=== PATIENT | male | born 1945 | race Caucasian/White ===

== ENCOUNTER 2023-01-03 09:15 | Emergency (ER) | payer OTHER ==
--- OUTSIDE RECORDS SUMMARY | 2023-01-03 09:18 | XMS REPORT | Continuity of Care Document ---
:1945 Author Organization [facility] t Address [address] [place] [address] [place] [id number] Care Team Providers Name Role Phone Asked, No Pcp Primary Care Physician Unavailable Robert Perry Attending Clinician Unavailable Doctor Unassigned, Christmas Attending Clinician Unavailable Cas Culp MD Attending Clinician CAS CULP Attending Clinician Unavailable CAS CULP Admitting Clinician Unavailable Payers Payer Name Policy Type Policy Number Effective Date Expiration Date S ource Problems Condition Condition Condition Status Onset Resolution Last Treating Co mments Source Name Details Category Date Date Treatment Clinician Date No known No known Disease Unive rs active active ity of problems problems [facility] Allergies, Adverse Reactions, Alerts Allergy Allergy Status Severity Reaction(s) Onset Inactive Treating Comm ents Source Name Type Date Date Clinician NO KNOWN Drug Active Univers ALLERGIE Class ity of S [facility] Social History Social Habit Start Date Stop Date Quantity Comments Source Gender identity Universit y of [facility] Sexual orientation [facility] Exposure to 2021-12-08 2021-12-18 Not sure [facility] SARS-CoV-2 (event) 00:00:00 09:28:00 [facility] History of Social 2021-12-05 2021-12-05 Univers ity of function 00:00:00 00:00:00 [facility] Tobacco use and 2021-12-05 2021-12-05 Smokeless Universit y of exposure 00:00:00 00:00:00 tobacco non-user [facility] Alcohol intake 2021-12-05 2021-12-05 Lifetime University of 00:00:00 00:00:00 non-drinker [facility] (finding) [place] Sex [birth year] Sabianist 00:00:00 00:00:00 Hospital Smoking Status Start Date Stop Date Source [facility] Medications Ordered Filled Start Stop Current Ordering Indication Dosage Frequency Signature Comments Components Source Medication Medication Date Date Medication? Clinician (SIG) Name Name cephALEXin 2021-02 Yes Univers 500 mg 0-25 ity of capsule 00:00: [place] [facility] cephALEXin 2021-02 Yes Univers 500 mg 0-25 ity of capsule 00:00: [place] [facility] cephALEXin 2021-02 Yes Univers 500 mg 0-25 ity of capsule 00:00: [place] [address] [facility] Branch cephALEXin 2021-02 Yes Univers 500 mg 0-25 ity of capsule 00:00: [place] [address] [facility] Branch dorzolamide 2021-02 Yes APPLY ONE U nivers -timoloL 0-13 DROP IN ity of 22.3-6.8 00:00: EACH EYE [place] mg/mL 00 TWICE A Medical ophthalmic DAY Branch drops dorzolamide 2021-02 Yes APPLY ONE U nivers -timoloL 0-13 DROP IN ity of 22.3-6.8 00:00: EACH EYE [place] mg/mL 00 TWICE A Medical ophthalmic DAY Branch drops dorzolamide 2021-02 Yes APPLY ONE U nivers -timoloL 0-13 DROP IN ity of 22.3-6.8 00:00: EACH EYE [place] mg/mL 00 TWICE A Medical ophthalmic DAY Branch drops dorzolamide 2021-02 Yes APPLY ONE U nivers -timoloL 0-13 DROP IN ity of 22.3-6.8 00:00: EACH EYE [place] mg/mL 00 TWICE A Medical ophthalmic DAY Branch drops LUMIGAN 2021-02 Yes 1[drp] Place 1 Unive rs 0.01 % 0-11 Drop in ity of ophthalmic 00:00: [place] drops 00 at Medical bedtime. Branch LUMIGAN 2021-02 Yes 1[drp] Place 1 Unive rs 0.01 % 0-11 Drop in ity of ophthalmic 00:00: [place] drops 00 at Medical bedtime. [facility] 2021-02 Yes 1[drp] Place 1 Unive rs 0.01 % 0-11 Drop in ity of ophthalmic 00:00: [place] eyes [place] drops 00 at Medical bedtime. [facility] 2021-02 Yes 1[drp] Place 1 Unive rs 0.01 % 0-11 Drop in ity of ophthalmic 00:00: [place] drops 00 at Medical bedtime. [place] diclofenac 2020- No [id number] TAKE 1 Univers 75 mg EC 2-27 05-28 9102 TABLET BY ity o f tablet 00:00: 04:59 MOUTH [place] 00 :00 TWICE A Medical DAY WITH [place] MEALS DICLOFENAC 2018-02 Yes [id number] TAKE 1 Univers 75 mg EC 2-10 9102 TABLET BY ity of tablet 00:00: MOUTH [place] 00 TWICE A Medical DAY WITH [facility] DICLOFENAC 2018-02 Yes [id number] TAKE 1 Univers 75 mg EC 2-10 9102 TABLET BY ity of tablet 00:00: MOUTH [place] 00 TWICE A Medical DAY WITH [facility] DICLOFENAC 2018-02 Yes [id number] TAKE 1 Univers 75 mg EC 2-10 9102 TABLET BY ity of tablet 00:00: MOUTH [place] 00 TWICE A Medical DAY WITH [facility] DICLOFENAC 2018-02 2020- No [id number] TAKE 1 Univers 75 mg EC 2-10 -27 9102 TABLET BY ity o f tablet 00:00: 00:00 MOUTH [place] 00 :00 TWICE A Medical DAY WITH [facility] TIMOLOL Yes Place in [facility] OPHTHALMIC 8-26 each eye. ity of 20:16: [address] TIMOLOL 2018-[address] [facility] [place] [facility] OPHTHALMIC 8-26 each eye. ity of 20:16: [address] TIMOLOL 2018-[address] in [facility] [place] [facility] OPHTHALMIC 8-26 each eye. ity of 20:16: [address] TIMOLOL 2019-[address] in [facility] [place] [facility] OPHTHALMIC 8-26 each eye. ity of 20:16: [address] TIMOLOL 2018-[address] in [facility] [place] [facility] OPHTHALMIC 8-26 each eye. ity of 20:16: [address] TIMOLOL 2019-[address] in [facility] [place] [facility] OPHTHALMIC 8-26 each eye. ity of 20:16: [address] TIMOLOL 2019-[address] [facility] [place] [facility] OPHTHALMIC 8-26 each eye. ity of 20:16: [address] TIMOLOL 2019-[address] [facility] [place] [facility] OPHTHALMIC 8-26 each eye. ity of 15:16: [address] TIMOLOL 2019-[address] [facility] [place] [facility] OPHTHALMIC 8-26 each eye. ity of 15:16: [address] TIMOLOL 2019-[address] [facility] [place] [facility] OPHTHALMIC 8-26 each eye. ity of 15:16: [address] TIMOLOL 2019-[address] [facility] [place] [facility] OPHTHALMIC 8-26 each eye. ity of 15:16: [address] TIMOLOL 2019-[address] [facility] [place] [facility] OPHTHALMIC 8-26 each eye. ity of 15:16: [address] TIMOLOL 2019-[address] [facility] [place] [facility] OPHTHALMIC 8-26 each eye. ity of 15:16: [address] TIMOLOL 2019-[address] [facility] [place] [facility] OPHTHALMIC 8-26 each eye. ity of 15:16: [address] diclofenac 2019-0 Yes [id number] 75mg Take 1 Univers 75 mg EC 8-26 9102 tablet by ity of tablet 00:00: mouth 2 [place] [address] ([facility]) Medical times [place] daily with meals. diclofenac 2019-0 Yes [id number] 75mg Take 1 Univers 75 mg EC 8-26 9102 tablet by ity of tablet 00:00: mouth 2 [place] [address] (two) Medical times [place] daily with meals. diclofenac 2019-0 Yes [id number] 75mg Take 1 Univers 75 mg EC 8-26 9102 tablet by ity of tablet 00:00: mouth 2 [place] (two) Medical times [place] daily with meals. Vital Signs Vital Name Observation Time Observation Value Comments Source Body height 2021-12-18 14:33:00 190.5 cm [facility] Body weight 2021-12-18 14:33:00 92.987 kg [facility] BMI 2021-12-18 14:33:00 25.62 kg/m2 [facility] Systolic blood 2021-12-05 14:08:00 139 [facility] Diastolic blood 2021-12-05 14:08:00 78 mm[Hg] Unive rsity of pressure [facility] Heart rate 2021-12-05 14:08:00 80 /min Universi ty of [facility] Body height 2021-12-05 14:08:00 190.5 cm Universi ty of [facility] Body weight 2021-12-05 14:08:00 92.987 kg Universi ty [facility] [place] BMI 2021-12-05 14:08:00 25.62 kg/m2 Universi ty of [facility] Body height 2019-03-08 20:32:00 190.5 cm Universi ty of [facility] Body weight 2019-03-08 20:32:00 95.255 kg Universi ty of [facility] BMI 2019-03-08 20:32:00 26.25 kg/m2 Universi ty [facility] [place] Systolic blood 2018-10-17 20:14:00 112 mm[Hg] Univer sity of [facility] Diastolic blood 2018-10-17 20:14:00 67 mm[Hg] Unive rsity of [facility] Heart rate 2018-10-17 20:14:00 66 /min Universi ty [facility] [place] Respiratory rate 2018-10-17 20:14:00 18 /min Univ ersity of [facility] Body height 2018-10-17 20:14:00 190.5 cm Universi ty of [facility] Body weight 2018-10-17 20:14:00 95.255 kg Universi ty [facility] [place] BMI 2018-10-17 20:14:00 26.25 kg/m2 Universi ty [facility] [place] Procedures Procedure Date / Time Performed Performing Clinician [facility] luis ASSIGNMENT OF BENEFITS 2022-09-09 13:39:24 Doctor Unassigned, No [facility] Branch MR KNEE RIGHT WO 2021-12-10 14:36:00 Cas Culp [facility] Plan of Care Planned Activity Planned Date Details Comments Source Future Scheduled 2022-12-19 COVID-19 VACCINE (#1) [facility] Test 22:34:16 [code = COVID-19 VACCINE (#1)] Future Scheduled 2022-12-19 Hepatitis C screening [facility] Test 22:34:16 (procedure) [code = 475164814] Future Scheduled 2022-12-19 SHINGLES VACCINES (1 [facility] Test 22:34:16 of 2) [code = SHINGLES VACCINES (1 of 2)] Future Scheduled 2022-12-19 65+ PNEUMOCOCCAL [facility] Test 22:34:16 VACCINE (1 - PCV) [code = 65+ PNEUMOCOCCAL VACCINE (1 - PCV)] Future Scheduled 2022-12-19 INFLUENZA VACCINE (#1) [facility] Test 22:34:16 [code = INFLUENZA VACCINE (#1)] Future Scheduled 2022-05-25 INFLUENZA VACCINE [facility] Test 16:40:27 [code = INFLUENZA VACCINE] Future Scheduled 2022-05-25 COVID-19 VACCINE (#1) [facility] Test 16:40:27 [code = COVID-19 VACCINE (#1)] Future Scheduled 2022-05-25 Hepatitis C screening [facility] Test 16:40:27 (procedure) [code = [id number]] Future Scheduled 2022-05-25 COLONOSCOPY SCREENING [facility] Test 16:40:27 [code = COLONOSCOPY SCREENING] Future Scheduled 2022-05-25 SHINGLES VACCINES (1 [facility] Test 16:40:27 of 2) [code = SHINGLES VACCINES (1 of 2)] Future Scheduled 2022-05-25 65+ PNEUMOCOCCAL [facility] Test 16:40:27 VACCINE (1 - PCV) [code = 65+ PNEUMOCOCCAL VACCINE (1 - PCV)] Encounters Start End Encounter Admission Attending Care Care Encounter Source Date/Time Date/Time Type Type Clinicians Facility Department ID 2022-07-01 Outpatient [place] [facility] [id number] Common 15:05:02 Robert [id number] [facility] 2022-09-09 2022-09-09 Orders Doctor FAM [id number] Univers 00:00:00 00:00:00 Only Unassigned, [place] [id number] ity of Christmas [facility] [id number] Top[place] as [phone] [facility] traci 009 Branch 2021-12-26 2021-12-26 Telephone DORA Culp [id number] Univers 00:00:00 00:00:00 Cas GOMEZ [id number] it y of [place] [id number] Topher as CHATO?BLEA [phone] [facility] [address] [place] [address] OFFICE [facility] 2021-12-18 2021-12-18 [facility] [id number] Univers 10:00:00 10:00:00 Visit Cas GOMEZ [id number] it y of [place] [id number] Topher as CHATO?BLEA [phone] [facility] [place] [address] [place] [address] OFFICE [facility] 2021-12-18 2021-12-18 [facility] [id number] Univers 10:00:00 09:58:05 CAS weems [facility] [place] 2021-12-10 2021-12-10 [facility] [id number] Univers 08:31:25 23:59:00 CAS weems [facility] [place] 2021-12-10 2021-12-10 [facility] [id number] Univers 08:31:25 23:59:00 Encounter Cas MELO [id number] ity of [place] [id number] [place] [facility] [phone] [address] 2021-12-05 2021-12-05 [facility] [id number] Univers 09:15:00 11:04:31 CAS weems [facility] [place] 2021-12-05 2021-12-05 [id number] Univers 09:15:00 11:04:31 Visit Cas GOMEZ [id number] it y of [place] [id number] Topher as CHATO?BLEA [phone] [facility] [place] [address] [place] [address] OFFICE [facility] 2020-08-21 2020-08-21 Outpatient [facility] [id number] [employer] 00:00:00 00:00:00 ROBERT [address] 2020-08-21 2020-08-21 Outpatient [facility] [id number] [employer] 00:00:00 00:00:00 ROBERT [address] 2019-04-20 2019-04-20 [facility] [id number] 00:00:00 00:00:00 Cas Gomez [id number] Surgical [id number] Specialti [phone] es [address] [place] 2019-04-20 2019-04-20 [facility] [id number] [facility] 00:00:00 00:00:00 Cas Gomez [id number] it y of Surgical [id number] Topher as Specialti [phone] Va dical es 198 [facility] 2019-03-08 2019-03-08 Office [facility] [id number] [facility] 14:28:15 15:08:55 Visit Cas Gomez [id number] it y of Surgical [id number] Topher as Specialti [phone] Va dical es 198 [facility] 2018-10-17 2018-10-17 [facility] [id number] [facility] 15:30:59 23:59:00 Encounter Cas Gomez [id number] ity of Surgical [id number] Topher as Specialti [phone] Va dical es 809 [facility] 2018-10-17 2018-10-17 Office [facility] [id number] Univers 15:09:41 15:43:06 Visit Cas Lr [employer] [id number] it y of Surgical [id number] Topher as Specialti [phone] Va dical es 198 [facility] Results This patient has no known results.
[2023-01-03 10:19] LABS: Absolute Lymphocytes (CBC) 0.5 K/uL (0.7-4.9); Hematocrit 38.5 % (39.6-49.0); Lymphocytes % 5.5 % (15.3-44.8); MPV 6.6 fL (7.6-11.3); Platelets 131 thou/uL (152-406); RBC Red Blood Cell Count 4.32 M/uL (4.33-5.43)
[2023-01-03 10:27] LABS: Specific Gravity 1.026 (1.005-1.030); Transitional Epithelial <5 /HPF (None Seen); Urine Bacteria 20-50 /HPF (<20); Urine Bilirubin NEGATIVE (Negative); Urine Blood 2+ (Negative); Urine Clarity Extremely Turbid (Clear); Urine Color Yellow (Yellow); Urine Glucose NEGATIVE (Negative); Urine Mucus Slight /HPF (None Seen); Urine Protein 1+ (Negative); Urine RBC >50 /HPF (None Seen); Urine Urobilinogen 1+ (Normal)
[2023-01-03 10:34] LABS: Albumin 3.1 g/dL (3.4-5.0); Bilirubin Total 1.2 mg/dL (0.2-1.0); Potassium 3.9 mEq/L (3.5-5.1); Protein, Total 6.4 g/dL (6.4-8.2)
--- NOTE | 2023-01-03 11:00 | RAD REPORT ---
EXAM DESCRIPTION: US - Scrotum Testicles - 01/03/2023 10:42 am CLINICAL HISTORY: Testicular pain COMPARISON: None FINDINGS: Right testicle measures 4 x 3 x 3 centimeters. Echotexture is homogeneous. Increased blood flow right testicle and right epididymis Left testicle measures 4 x 3 x 2 centimeters. Echotexture is homogeneous. Normal blood flow Left epididymis is normal in size and echotexture. Small to moderate right hydrocele IMPRESSION: Right orchitis/epididymitis
--- NOTE | 2023-01-03 11:11 | ER ---
Nurse's Notes [facility] Name: Kishor Vargas Age: 77 yrs Sex: Male : 1945 Arrival Date: 01/03/2023 Time: 09:15 Bed 19 Private MD: Diagnosis: Epididymo-orchitis Presentation: 01/03 09:23 Chief complaint: Patient states: Swelling and pain to scrotal area since yesterday. ll1 Temperature 101.[address] Quan since May with Harrington since. Had urodynamic procedure Wednesday, [place] was replaced at that time. Coronavirus screen: Client denies travel out of the [place] in the last 14 days. At this time, the client does not indicate any symptoms associated with coronavirus-19. Ebola Screen: Patient denies travel to an Ebola-affected area in the 21 days before illness onset. Initial Sepsis Screen: Does the patient meet any 2 criteria? No. Patient's initial sepsis screen is negative. Does the patient have a suspected source of infection? Yes: Dysuria/Frequency/Urgency/UTI Catheter related infection ([place]/dialysis/PICC/central line). Risk Assessment: Do you want to hurt yourself or someone else? Patient reports no desire to harm self or others. Onset of symptoms was January 02, 2023. : Method Of Arrival: Ambulatory 1 :23 Acuity: ARMOND 3 ll1 Triage Assessment: : General: Appears uncomfortable, Behavior is calm, cooperative, appropriate for age. ll1 General: Reports fever for. : Reports swelling and pain to scrotal area. Historical: - Allergies: : No Known Allergies; ll1 - PMHx: : Glaucoma; ll1 - PSHx: : Glaucoma; Umbilical hernia; ll1 - Immunization history:: Adult Immunizations up to date. - Social history:: Smoking status: Patient denies any tobacco usage or history of. Screenin: [facility] ED Fall Risk Assessment (Adult) History of falling in the last 3 months, tm6 including since admission No falls in past 3 months (0 pts). Abuse screen: Denies threats or abuse. Denies injuries from another. Nutritional screening: No deficits noted. Tuberculosis screening: No symptoms or risk factors identified. Assessment: 09:22 General: Appears in no apparent distress. comfortable, Behavior is calm, cooperative. tm6 Pain: Complains of pain in pelvis. Neuro: Level of Consciousness is awake, alert, obeys commands, Oriented to person, place, time, situation. Cardiovascular: Capillary refill < 3 seconds Patient's skin is warm and dry. Respiratory: Airway is patent Respiratory effort is even, unlabored, Respiratory pattern is regular, symmetrical. GI: Abdomen is round non-distended. : No signs and/or symptoms were reported regarding the genitourinary system. EENT: No signs and/or symptoms were reported regarding the EENT system. Derm: No signs and/or symptoms reported regarding the dermatologic system. Musculoskeletal: No signs and/or symptoms reported regarding the musculoskeletal system. 10:43 Reassessment: Patient appears in no apparent distress at this time. tm6 11:31 Reassessment: Patient appears in no apparent distress at this time. Patient and/or tm6 family updated on plan of care and expected duration. Pain level reassessed. Vital Signs: 09:22 BP 160 / 91; Pulse 87; Resp 17; Temp 98.9(O); Pulse Ox 97% on R/A; tm6 09:23 Weight 92.99 kg; Height 6 ft. 3 in. ; Pain 8/10; ll1 10:43 Pulse 69; Pulse Ox 94% on R/A; tm6 11:31 BP 163 / 85; Pulse 74; Resp 17; Pulse Ox 98% ; tm6 09:23 Body Mass Index 25.62 (92.99 kg, 190.5 cm) ll1 09:23 Pain Scale: Adult ll1 ED Course: 09:17 Patient arrived in ED. mg5 09:20 Jass Caputo MD is Attending Physician. ec2 09:22 Yolis Keane RN is Primary Nurse. tm6 09:22 Patient has correct armband on for positive identification. Placed in gown. Bed in low tm6 position. Call light in reach. Side rails up X2. Provided Education on: harrington care. Client placed on continuous cardiac and pulse oximetry monitoring. NIBP monitoring applied. Door closed. Noise minimized. 09:22 scrotal exam. tm6 09:23 Arm band placed on Patient placed in an exam room, on a stretcher. ll1 09:26 Triage completed. ll1 10:44 Scrotum Testicles US In Process Unspecified. EDMS 11:32 IV discontinued, intact, bleeding controlled, No redness/swelling at site. tm6 Administered Medications: 11:31 Drug: LevOfloxacin PO 500 mg PO once Route: PO; tm6 Medication: 09:22 VIS not applicable for this client. tm6 Outcome: 11:10 Discharge ordered by . ec2 11:31 Discharged to home ambulatory, with family, tm6 11:31 Condition: stable 11:31 Discharge instructions given to patient, family, Instructed on discharge instructions, follow up and referral plans. medication usage, harrington care Demonstrated understanding of instructions, follow-up care, medications, Prescriptions given X 1, 11:32 Patient left the ED. tm6 Addendum: 01/08/2023 07:15 Addendum: Culture Results: Positive urine culture. No further action required. Bacteria e b sensitive to prescribed antibiotic. Signatures: Dispatcher [employer] EDCO Gris Monreal Lynsay, RN RN ll1 Whitney Lerma mg5 Jass Caputo MD MD ec2 Yolis Keane RN RN tm6
--- NOTE | 2023-01-03 11:11 | EDPHYS ---
Physician Documentation [facility] Name: Kishor Vargas Age: 77 yrs Sex: Male : 1945 Arrival Date: 01/03/2023 Time: 09:15 Bed 19 Private MD: ED Physician Jass Caputo HPI: 01/03 09:32 This 77 yrs old Male presents to ER via Ambulatory with complaints of Lutz ec2 Issue, Swelling in Scrotum. 09:32 Patient arrives today for evaluation of right testicular pain. He states that he has ec2 been having pain since just yesterday and the pain has been worsening. Patient reports no nausea or vomiting, no diarrhea symptoms. States that he has issues with urinary retention and has a chronic indwelling Lutz catheter that has been in place since May and recently replaced several days ago. Patient reports no change in urinary status.. Historical: - Allergies: 09:23 No Known Allergies; ll1 - PMHx: 09:23 Glaucoma; ll1 - PSHx: 09:23 Glaucoma; Umbilical hernia; ll1 - Immunization history:: Adult Immunizations up to date. - Social history:: Smoking status: Patient denies any tobacco usage or history of. ROS: 09:32 Constitutional: as per hpi ec2 Exam: 09:32 Constitutional: GEN: NAD Head: atraumatic Eyes: EOMI Ears: External ears are ec2 normal. CV: regular rate LUNGS: no respiratory distress ABD: non-distended : Intact cremasterics reflexes bilaterally, right testicle with TTP, slightly enlarged epididymis, normal left testicle. SKIN: no evidence of rashes MSK: no evidence of trauma NEURO: moves all extremities equally Vital Signs: 09:22 BP 160 / 91; Pulse 87; Resp 17; Temp 98.9(O); Pulse Ox 97% on R/A; tm6 09:23 Weight 92.99 kg; Height 6 ft. 3 in. ; Pain 8/10; ll1 10:43 Pulse 69; Pulse Ox 94% on R/A; tm6 11:31 BP 163 / 85; Pulse 74; Resp 17; Pulse Ox 98% ; tm6 09:23 Body Mass Index 25.62 (92.99 kg, 190.5 cm) ll1 09:23 Pain Scale: Adult ll1 MDM: 09:20 Patient medically screened. ec2 09:32 ED course: Patient arrives today due to concern for testicular pain. Examination ec2 remarkable for findings as noted above. Will obtain lower, urine studies, scrotal ultrasound for further assessment of the patient complaint. Currently considering process such as epididymitis, orchitis, lower suspicion for torsion. 09:52 ED course: Additionally regards to the patient's urine, possibly urine test as well as ec2 urine culture, patient with no urinary complaints specifically, regardless of result will defer to culture given the patient's lack of urinary complaints.. 10:47 ED course: CBC is reassuring, metabolic profile with appropriate electrolytes and renal ec2 function, urine is markedly infectious appearing, to be expected with the patient's Lutz catheter status. . 11:09 Data reviewed: vital signs. ED course: Ultrasound shows right-sided orchitis and ec2 epididymitis. Will start on antibiotics and follow-up with primary care doctor and urologist. 11 09:31 Order name: CBC with Diff; Complete Time: 10:47 ec2 01/03 09:31 Order name: CMP; Complete Time: 10:47 ec2 01/03 09:31 Order name: UAM; Complete Time: 10:47 ec2 01/03 09:52 Order name: Urine Culture ec2 01/03 09:31 Order name: Scrotum Testicles US; Complete Time: 11:09 ec2 Administered Medications: 11:31 Drug: LevOfloxacin PO 500 mg PO once Route: PO; tm6 Disposition Summary: 01/03/23 11:10 Discharge Ordered Notes: Location: Home ec2 Condition: Stable ec2 Diagnosis - Epididymo-orchitis ec2 Discharge Instructions: - Discharge Summary Sheet eb - Epididymitis ec2 - Orchitis ec2 Forms: - SBAR form eb - Medication Reconciliation Form ec2 - Thank You Letter ec2 - Antibiotic Education ec2 - Prescription Opioid Use ec2 - Patient Portal Instructions ec2 - Leadership Thank You Letter ec2 Prescriptions: - levofloxacin 500 mg Oral tablet - take 1 tablet ORAL route once daily for 7 days; 10 tablet; Refills: 0, Product ec2 Selection Permitted Signatures: Dispatcher [employer] Marlo Johansen RN RN ll1 Jass Caputo MD MD ec2 Yolis Keane RN RN tm6
[2023-01-03 11:37] VITALS: TEMP 98.9
[2023-01-03] MEDS ORDERED: levoFLOXacin 250 MG TAB ONE (11:37)
[2023-01-03 11:40] VITALS: BP 163/85; O2SAT 98
== END 2023-01-03 11:32 | disposition home or self-care (01) ==
LOC: ER 09:15
DX: N45.3 Epididymo-orchitis (principal)
CPT/HCPCS: 36415; 76870; 80053; 81001; 85025; 87077; 87086; 87088; 87186; 99284

== ENCOUNTER 2024-03-07 06:30 | Day surgery (SDC) | payer OTHER ==
[2024-03-02 11:47] LABS: Absolute Eosinophils 0.5 K/uL (0-0.5); Absolute Lymphocytes (CBC) 1.5 K/uL (0.7-4.9); Absolute Monocytes 0.9 K/uL (0.1-1.3); Absolute Neutrophil 5.6 K/uL (1.8-8.0); Basophils % 0.6 % (0-1.3); Eosinophils % 5.3 % (0-4.4); Hematocrit 43.2 % (39.6-49.0); Hemoglobin 14.3 g/dL (13.6-17.9); Lymphocytes % 18.1 % (15.3-44.8); MCH 30.1 pg (27.0-35.0); MPV 6.3 fL (7.6-11.3); Monocytes % 10.7 % (3.3-12.3); Neutrophils % 65.3 % (41.7-73.7); Platelets 164 thou/uL (152-406); RBC Red Blood Cell Count 4.75 M/uL (4.33-5.43); Red Cell Distribution Width 13.8 % (12.1-15.2)
[2024-03-02 11:48] LABS: PT Prothrombin Time 12.7 SECONDS (9.4-12.5); Protime INR 1.14
[2024-03-02 12:05] LABS: Anion Gap 7.4 mEq/L (5.0-15.0); Potassium 5.4 mEq/L (3.5-5.1)
--- NOTE | 2024-03-02 13:28 | RAD REPORT ---
EXAMINATION: TWO VIEW CHEST XR CLINICAL INDICATION: Male, 78 years old. [facility] MA[facility] Pre-op pending urolift. Hypertension TECHNIQUE: 2 view radiographs of the chest were performed. COMPARISON: 06/11/2022 FINDINGS: The lungs are well inflated and clear. No pneumothorax or sizable effusion. The heart is normal in si ze. Mediastinal contours are unremarkable. IMPRESSION: No acute or significant abnormalities.
--- NOTE | 2024-03-06 10:56 | EKG ---
Test Date: 2024-03-02 Test Time: 12:13:33 Pot Press Operator: VALENTINA MEASUREMENT RESULTS: Intervals: Rate: 50 VA: 176 QRSD: 78 QT: 426 QTc: 388 [place]: P: 63 VA: 176 QRS: 57 T: 61 INTERPRETIVE STATEMENTS: Sinus bradycardia Nonspecific T wave abnormality Abnormal ECG No previous ECG available for comparison Electronically Signed On 03-06-24 10:51:29 PHILATELIC CONSULTANT by Bobby Richardson
[2024-03-07] MEDS ORDERED: Ringers Lactate 1,000 ML IV ONE (06:53)
[2024-03-07 07:38] LABS: Anion Gap 7.1 mEq/L (5.0-15.0); Potassium 4.1 mEq/L (3.5-5.1)
[2024-03-07] MEDS ORDERED: LIDOCAINE 1% MPF 5 ML VIAL ONE (07:38)
[2024-03-07] MEDS ORDERED: FENTANYL CITR 100 MCG/2 ML ONE (07:39)
[2024-03-07] MEDS ORDERED: propofoL 200 MG/20 ML VIAL IV ONE (07:39)
[2024-03-07] MEDS ORDERED: MIDAZOLAM HCL 2 MG/2 ML INJ ONE (07:39)
[2024-03-07] MEDS: GENTAMICIN 80 MG/100 ML BAG 240 MG/300 ML BAG IV ONE (07:47)
[2024-03-07] MEDS: AMPICILLIN SODIUM 2 GM/VIAL VIAL ONE (08:00)
[2024-03-07] MEDS ORDERED: GLYCOPYRROLATE 0.2 MG/ML SYR ONE (08:07)
[2024-03-07] MEDS ORDERED: KETOROLAC 30 MG/ML INJ ONE (08:15)
[2024-03-07] MEDS: CODEINE 30MG/APAP 300MG TAB ONE (09:45)
--- NOTE | 2024-03-07 13:24 | P.OP ---
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 He underwent urodynamics evaluation which revealed the presence of significant detrusor dysfunction and was counseled on the equivocal ability to restore his ability to void via surgical management of his obstruction alone. He was further counseled on the potential benefit for application of neuromodulation to try to restore detrusor function if relief of the obstruction alone was insufficient. Since he was not considered a candidate for neuromodulation until the obstruction had been adequately treated, we elected to proceed with treatment of his obstruction via UroLift first. Procedure note: The patient was consented in the preoperative holding area before being transferred to the operative suite where general anesthesia was induced. He was given ampicillin 2 g and gentamicin 240 mg IV antimicrobial prophylaxis in addition to ciprofloxacin that he was provided preoperatively given the chronic indwelling Lutz catheter. Pneumoboots were provided for DVT prophylaxis. He was placed in the lithotomy position, padded and secured to the table appropriately. His genitalia was prepped with Hibiclens and he was draped in standard fashion. The case has begun using the 20 [place] UroLift sheath and a visual pilot boat operator to traverse the urethra and into the bladder with ease. The bladder was decompressed of fluid and urine and then irrigated briefly with saline to remove any bacterial colonization or debris within. I then switched the UroLift pilot boat operator for a delivery device and the first implant. I targeted this implant at the patient's bladder neck on the left approximately 1.5 to 2 cm distal to the bladder neck opening at around the 3 o'clock position. I angled the scope about 15 degrees against the tissue and then pulled the trigger once delivering the needle through the substance of the prostate. I then compressed the tissue extensively to ensure the needle tip was delivered outside of the capsular surface, and then pulled the trigger a second time deploying the capsular tab. This also partially retracted the needle; so when I pulled the trigger a third time, the needle was completely retracted and the suture was tensioned. I then advanced the scope back toward the midline and 2 to 3 mm toward the bladder neck opening until the white line of the monofilament was centered in the delivery bay. At this point, I pulled the trigger a fourth time delivering the urethral end piece and tailoring the suture. This did lateralized the tissue in that location nicely. I then went back into the bladder with the scope and switched for a new UroLift implant and this time targeted the patient's right bladder neck. Given the concern for developing a fishmouth appearance to the bladder neck opening, I targeted this implant more superiorly at around the 11 o'clock position angled about 45 degrees upward. And while this implant did lateralized the tissue in that location, unfortunately, the bladder neck opening continue to remain relatively closed. As a result, I then targeted a position on the left side more superior to the previously placed implant at 3:00, this time at around the 1 o'clock position, and placed a third implant before placing a fourth implant at the right bladder neck around the 9 o'clock position, targeting the 4 corners to create or attempt to create a square opening at the bladder neck. Despite each of these implants being successfully placed, the bladder neck remained slightly appositioned; so I surveyed the channel created using a visual obturator and identified additional tissue largely emanating from the right lateral aspect of the prostate anterolaterally from the bladder neck. As a result, I placed 1/5 implant targeting that tissue between the superior and inferior right bladder neck implants, and I elevated the tissue in that location between the mid gland and base region. I then again surveyed the channel created, and while the bladder neck opening was slightly less than appositioned, there was still a degree of closure at the bladder neck that was less than desired. So I targeted a 6 the implant again at the patient's bladder neck on the right side, but this time the implant was targeted more closely to the bladder neck opening about 1 cm distal to the bladder neck opening. Unfortunately, because significant compression was targeted to try to avoid the portion of the implant becoming intravesical, I achieved a bone strike, and the implant was not successfully placed. As a result, I remove that implant and then targeted a 7 the splint in the same position with less compression and successfully elevated and lateralized the tissue at the bladder neck to create a bladder neck opening that was visible from the verumontanum at least 300-400% larger than that originally present. As a result, having used 7 implants, while an additional implants could potentially have been placed at the apex to lateralize to the location, and perhaps a third additional implant added to the patient's left bladder neck further tried to open that region, further implant placements were not attempted at this time, as I surveyed the channel created with the bladder decompressed and was able to achieve free flow bladder minimally full of fluid. As a result, I then refilled his bladder with me, removed, and then I replaced a new 18 [place]ian Lutz catheter into his bladder with ease. Approximately 20 to 25 cc of sterile water was placed in the balloon, and the catheter was connected to a leg bag. The patient was taken out of the lithotomy position, awakened from general anesthesia, transferred to a stretcher, and then transferred to the recovery room in good condition. Complications: None Discharge disposition: We will give him a voiding trial in the urology clinic on or Wednesday of this week. If unsuccessful, subsequent follow-up should be established to discuss and review the relevant considerations prior to [employer] neuromodulation percutaneous trial. Findings and Operative Technique
== END 2024-03-07 10:32 | disposition home or self-care (01) ==
LOC: OR 06:30
PROVIDERS: ATTEND Urology
PROC: 0T7D8DZ Dilation of Urethra with Intraluminal Device, Via Natural or Artificial Opening Endoscopic (ICD-10-PCS; principal; 2024-03-07 07:30)
DX: N40.1 Benign prostatic hyperplasia with lower urinary tract symptoms (principal); R33.9 Retention of urine, unspecified; N31.8 Other neuromuscular dysfunction of bladder
CPT/HCPCS: 93005; 85025; 80048 ×2; 36415 ×2; 85610; 71046; 52441; 52442 ×5; J2704; J2003; J2250; J3010; J0290; J7120; J1580

== ENCOUNTER 2024-03-11 07:52 | Emergency (ER) | payer OTHER ==
[2024-03-11] MEDS ORDERED: CIPROFLOXACIN HCL 500 MG TAB ONE (08:59)
--- NOTE | 2024-03-11 09:11 | ER ---
Nurse's Notes [facility] Name: Kishor Vargas Age: 78 yrs Sex: Male : 1945 Arrival Date: 03/11/2024 Time: 07:52 Bed 8 Private MD: Diagnosis: Other mechanical complication of urinary (indwelling) catheter;Hematuria, unspecified Presentation: 03/11 08:04 Chief complaint: Patient states: he had a urolift with Dr. Quan on Wednesday03/07/24. ap3 Patient followed up with Dr. Quan yesterday 03/10/24 where his catheter was replaced, but feels like the catheter is not is not draining. Patient currently rates his discomfort as a 7/10 on the pain scale. Coronavirus screen: At this time, the client does not indicate any symptoms associated with coronavirus-19. Ebola Screen: No symptoms or risks identified at this time. Initial Sepsis Screen: Does the patient meet any 2 criteria? No. Patient's initial sepsis screen is negative. Does the patient have a suspected source of infection? No. Patient's initial sepsis screen is negative. Risk Assessment: Do you want to hurt yourself or someone else? Patient reports no desire to harm self or others. Onset of symptoms is unknown. Transition of care: patient was not received from another setting of care. 08:04 Method Of Arrival: Ambulatory ap3 08:09 Acuity: ARMOND 3 ap3 Triage Assessment: 08:08 General: Appears in no apparent distress. Behavior is calm, cooperative, appropriate ap3 for age. Pain: Complains of pain in suprapubic area Pain currently is 7 out of 10 on a pain scale. Neuro: Level of Consciousness is awake, alert, obeys commands, Oriented to person, place, time, situation, Appropriate for age Gait is steady, Speech is normal. Cardiovascular: Patient's skin is warm and dry. Respiratory: Airway is patent Respiratory effort is even, unlabored, Respiratory pattern is regular, symmetrical. : Lutz in place to gravity drainage. Historical: - Allergies: 08:07 No Known Allergies; ap3 - PMHx: 08:07 Glaucoma; urinary retention; ap3 - PSHx: 08:07 Glaucoma; Umbilical hernia; ap3 - Immunization history:: Client reports receiving the 2nd dose of the Covid vaccine, Flu vaccine is up to date. - Infectious Disease History:: Denies. - Social history:: Smoking status: Patient denies any tobacco usage or history of. Patient uses alcohol, occasionally. - Family history:: not pertinent. Screenin:09 Abuse screen: Denies threats or abuse. Nutritional screening: No deficits noted. ap3 Tuberculosis screening: No symptoms or risk factors identified. 08:10 [facility] ED Fall Risk Assessment (Adult) History of falling in the last 3 months, ap3 including since admission No falls in past 3 months (0 pts) Confusion or Disorientation No (0 pts) Intoxicated or Sedated No (0 pts) Impaired Gait No (0 pts) Mobility Assist Device Used No (0 pt) Altered Elimination Yes (1 pt) Score/Fall Risk Level 0 - 2 = Low Risk Oriented to surroundings, Maintained a safe environment, Educated pt \T\ family on fall prevention, incl call for assistance when getting out of bed, Assessed \T\ reinforced patient's understanding of fall precautions, Hourly rounding (assess needs \T\ fall precautionary measures) done, Used ambulatory aids as needed (educated on \T\ assisted with), Used gait belt as appropriate. Assessment: 08:33 General: Appears in no apparent distress. comfortable, Behavior is calm, cooperative, ld1 appropriate for age. Pain: Denies pain. Neuro: Level of Consciousness is awake, alert, obeys commands, Oriented to person, place, time, situation, Appropriate for age. Cardiovascular: Capillary refill < 3 seconds Patient's skin is warm and dry. Respiratory: Airway is patent Respiratory effort is even, unlabored. GI: Abdomen is round non-distended. : Reports inability to void, reports recent procedure - not draining urine since last night. Denies pain. EENT: No signs and/or symptoms were reported regarding the EENT system. Derm: No signs and/or symptoms reported regarding the dermatologic system. Musculoskeletal: No signs and/or symptoms reported regarding the musculoskeletal system. Vital Signs: 08:04 BP 105 / 92; Pulse 76; Resp 17; Temp 98.4(TE); Pulse Ox 99% on R/A; Weight 94.8 kg; ap3 Height 6 ft. 3 in. ; Pain 7/10; 08:33 BP 120 / 66; Pulse 64; Resp 18; Pulse Ox 97% on R/A; Pain 0/10; ld1 09:17 BP 106 / 75; Pulse 68; Resp 17; Pulse Ox 100% ; ko1 08:04 Body Mass Index 26.12 (94.80 kg, 190.5 cm) ap3 08:04 Pain Scale: Adult ap3 08:33 Pain Scale: Adult ld1 ED Course: 07:54 Patient arrived in ED. ra3 07:55 Norris Canchola MD is Attending Physician. latia 08:07 Triage completed. ap3 08:09 Arm band placed on right wrist. ap3 08:09 Patient has correct armband on for positive identification. Bed in low position. Call ap3 light in reach. Adult w/ patient. Provided Education on: call light education. Pulse ox on. NIBP on. 08:33 Marybel Shah, RN is Primary Nurse. ld1 08:33 Door closed. Noise minimized. Warm blanket given. ld1 08:33 No provider procedures requiring assistance completed. Bladder irrigated via Lutz with ld1 50 ml normal saline returned Blood tinged urine Patient tolerated well. 09:10 Alexander Quan MD is Referral Physician. [facility] 09:17 Patient did not have IV access during this emergency room visit. ko1 Administered Medications: 09:02 Drug: Ciprofloxacin PO 500 mg PO once Route: PO; ko1 09:19 Follow up: Response: No adverse reaction; Medication administered at discharge. ko1 Medication: 08:09 VIS not applicable for this client. ap3 Outcome: 09:10 Discharge ordered by . latia 09:17 Discharged to home ambulatory, with family, ko1 09:17 Condition: improved 09:17 Discharge instructions given to patient, family, Instructed on discharge instructions, follow up and referral plans. medication usage, Demonstrated understanding of instructions, follow-up care, medications, Prescriptions given X 1, 09:19 Patient left the ED. ko1 Signatures: Norris Canchola MD MD cha Prokisch, Amanda, RN RN ap3 Marybel Shah RN RN ld1 Charlene Posada RN RN ko1 Annalisa Carver ra3 Corrections: (The following items were deleted from the chart) 08:09 08:04 Acuity: ARMOND 2 ap3 ap3
--- NOTE | 2024-03-11 09:11 | EDPHYS ---
Physician Documentation [facility] Name: Kishor Vargas Age: 78 yrs Sex: Male : 1945 Arrival Date: 03/11/2024 Time: 07:52 Bed 8 Private MD: MIMI Physician Norris Canchola HPI: 03/11 09:07 This 78 yrs old Male presents to ER via Ambulatory with complaints of Problem latia With Urinary Catheter, Urinary Retention. 09:07 The patient presents with a Harrington catheter problem, is not draining. Onset: The latia symptoms/episode began/occurred last night. Modifying factors: The symptoms are alleviated by nothing, the symptoms are aggravated by nothing. Associated signs and symptoms: The patient has no apparent associated signs or symptoms. Severity of symptoms: At their worst the symptoms were moderate, in the emergency department the symptoms are unchanged. The patient has experienced similar episodes in the past, several times. Historical: - Allergies: 08:07 No Known Allergies; ap3 - PMHx: 08:07 Glaucoma; urinary retention; ap3 - PSHx: 08:07 Glaucoma; Umbilical hernia; ap3 - Immunization history:: Client reports receiving the 2nd dose of the Covid vaccine, Flu vaccine is up to date. - Infectious Disease History:: Denies. - Social history:: Smoking status: Patient denies any tobacco usage or history of. Patient uses alcohol, occasionally. - Family history:: not pertinent. ROS: 09:07 Constitutional: Negative for fever, chills, and weight loss, Eyes: Negative for injury, latia pain, redness, and discharge, ENT: Negative for injury, pain, and discharge, Neck: Negative for injury, pain, and swelling, Cardiovascular: Negative for chest pain, palpitations, and edema, Respiratory: Negative for shortness of breath, cough, wheezing, and pleuritic chest pain, Abdomen/GI: Negative for abdominal pain, nausea, vomiting, diarrhea, and constipation, Back: Negative for injury and pain, MS/Extremity: Negative for injury and deformity, Skin: Negative for injury, rash, and discoloration, Neuro: Negative for headache, weakness, numbness, tingling, and seizure, Psych: Negative for depression, anxiety, suicide ideation, homicidal ideation, and hallucinations, Allergy/Immunology: Negative for hives, rash, and allergies, Endocrine: Negative for neck swelling, polydipsia, polyuria, polyphagia, and marked weight changes, 09:07 : Positive for harrington blocked, Exam: 09:07 Constitutional: This is a well developed, well nourished patient who is awake, alert, latia and in no acute distress. Head/Face: Normocephalic, atraumatic. Eyes: Pupils equal round and reactive to light, extra-ocular motions intact. Lids and lashes normal. Conjunctiva and sclera are non-icteric and not injected. Cornea within normal limits. Periorbital areas with no swelling, redness, or edema. ENT: Nares patent. No nasal discharge, no septal abnormalities noted. Tympanic membranes are normal and external auditory canals are clear. Oropharynx with no redness, swelling, or masses, exudates, or evidence of obstruction, uvula midline. Mucous membranes moist. Neck: Trachea midline, no thyromegaly or masses palpated, and no cervical lymphadenopathy. Supple, full range of motion without nuchal rigidity, or vertebral point tenderness. No Meningismus. Chest/axilla: Normal chest wall appearance and motion. Nontender with no deformity. No lesions are appreciated. Cardiovascular: Regular rate and rhythm with a normal S1 and S2. No gallops, murmurs, or rubs. Normal PMI, no JVD. No pulse deficits. Respiratory: Lungs have equal breath sounds bilaterally, clear to auscultation and percussion. No rales, rhonchi or wheezes noted. No increased work of breathing, no retractions or nasal flaring. Abdomen/GI: Soft, non-tender, with normal bowel sounds. No distension or tympany. No guarding or rebound. No evidence of tenderness throughout. Back: No spinal tenderness. No costovertebral tenderness. Full range of motion. Skin: Warm, dry with normal turgor. Normal color with no rashes, no lesions, and no evidence of cellulitis. MS/ Extremity: Pulses equal, no cyanosis. Neurovascular intact. Full, normal range of motion., bilateral aka Neuro: Awake and alert, GCS 15, oriented to person, place, time, and situation. Cranial nerves II-XII grossly intact. Motor strength 5/5 in all extremities. Sensory grossly intact. Cerebellar exam normal. Normal gait. Psych: Awake, alert, with orientation to person, place and time. Behavior, mood, and affect are within normal limits. 09:07 : CVA tenderness, is absent, Male external genitalia: normal, Bladder: distension, that is mild, Sexual behavior: the patient is not sexually active, to gravity drainage, Vital Signs: 08:04 BP 105 / 92; Pulse 76; Resp 17; Temp 98.4(TE); Pulse Ox 99% on R/A; Weight 94.8 kg; ap3 Height 6 ft. 3 in. ; Pain 7/10; 08:33 BP 120 / 66; Pulse 64; Resp 18; Pulse Ox 97% on R/A; Pain 0/10; ld1 09:17 BP 106 / 75; Pulse 68; Resp 17; Pulse Ox 100% ; ko1 08:04 Body Mass Index 26.12 (94.80 kg, 190.5 cm) ap3 08:04 Pain Scale: Adult ap3 08:33 Pain Scale: Adult ld1 MDM: 07:55 Medical Screening Exam initiated latia 09:09 Differential diagnosis: nonspecific abdominal pain, UTI, urinary retention, Harrington latia catheter problem, prostatitis, urethritis. Data reviewed: vital signs, nurses notes, lab test result(s). Consideration of Admission/Observation Escalation of care including admission/observation considered. I considered the following discharge prescriptions or medication management in the emergency department Medications were administered in the Emergency Department. See MAR. Test considered but Not performed: Labs: no labs. 03/11 08:09 Order name: Hali. Order: IRRIGATE; Complete Time: 08:33 latia Administered Medications: 09:02 Drug: Ciprofloxacin PO 500 mg PO once Route: PO; ko1 09:19 Follow up: Response: No adverse reaction; Medication administered at discharge. ko1 Disposition Summary: 03/11/24 09:10 Discharge Ordered Notes: Location: Home latia Problem: new latia Symptoms: have improved latia Condition: Stable latia Diagnosis - Other mechanical complication of urinary (indwelling) catheter latia - Hematuria, unspecified latia Followup: latia - With: Private Physician - When: 2 - 3 days - Reason: Recheck today's complaints, Continuance of care, Re-evaluation by your physician Followup: latia - With: Alexander Quan MD - When: 2 - 3 days - Reason: Recheck today's complaints, Continuance of care, Re-evaluation by your physician Discharge Instructions: - Discharge Summary Sheet latia - Indwelling Urinary Catheter Care, Adult latia - Hematuria, Adult [facility] Forms: - Medication Reconciliation Form latia - Antibiotic Education latia - Prescription Opioid Use latia - Patient Portal Instructions latia - Leadership Thank You Letter latia Prescriptions: - Cipro 250 mg Oral tablet - take 1 tablet ORAL route every 12 hours; 14 tablet; Refills: 0, Product latia Selection Permitted Signatures: Dispatcher [employer] EDMS Norris Canchola MD MD cha Prokisch, Amanda RN RN ap3 Charlene Posada RN RN ko1 Corrections: (The following items were deleted from the chart) 08:08 07:56 Harrington ordered. latia jeffery 08:33 07:56 Leg Bag ordered. latia ld1 08:53 08:53 Urine Culture+BA.LAB.BRZ ordered. EDAR EDMS
[2024-03-11 13:29] VITALS: TEMP 98.4
[2024-03-11 13:32] VITALS: BP 106/75; O2SAT 100
== END 2024-03-11 09:19 | disposition home or self-care (01) ==
LOC: ER 07:52
DX: T83.098A Other mechanical complication of other urinary catheter, initial encounter (principal); R31.9 Hematuria, unspecified
CPT/HCPCS: 51700; 99284

== ENCOUNTER 2024-06-05 12:23 | Day surgery (SDC) | payer OTHER ==
[2024-05-12 13:40] LABS: Anion Gap 7.1 mEq/L (5.0-15.0); Potassium 4.1 mEq/L (3.5-5.1)
[2024-05-12 13:44] LABS: Absolute Basophils 0.1 K/uL (0-0.5); Absolute Eosinophils 0.4 K/uL (0-0.5); Absolute Lymphocytes (CBC) 1.3 K/uL (0.7-4.9); Absolute Monocytes 0.6 K/uL (0.1-1.3); Absolute Neutrophil 4.5 K/uL (1.8-8.0); Basophils % 0.8 % (0-1.3); Eosinophils % 5.5 % (0-4.4); Hematocrit 39.9 % (39.6-49.0); Hemoglobin 13.7 g/dL (13.6-17.9); Lymphocytes % 18.8 % (15.3-44.8); MCH 30.2 pg (27.0-35.0); MCHC 34.2 g/dL (32.0-36.0); MCV 88.3 fL (80-100); MPV 6.8 fL (7.6-11.3); Monocytes % 8.2 % (3.3-12.3); Neutrophils % 66.7 % (41.7-73.7); Platelets 134 thou/uL (152-406); RBC Red Blood Cell Count 4.52 M/uL (4.33-5.43); Red Cell Distribution Width 14.7 % (12.1-15.2)
[2024-05-12 13:49] LABS: PT Prothrombin Time 14.2 SECONDS (10-13.0); PTT, Activated Partial Thromb 34.1 SECONDS (27.2-37.4); Protime INR 1.26
--- NOTE | 2024-05-15 12:10 | EKG ---
Test Date: 2024-05-12 Test Time: 13:07:54 Pole Lift Operator: VALENTINA MEASUREMENT RESULTS: Intervals: Rate: 57 TN: 164 QRSD: 82 QT: 422 QTc: 410 [place]: P: 63 TN: 164 QRS: 28 T: 65 INTERPRETIVE STATEMENTS: Sinus bradycardia Nonspecific ST abnormality Abnormal ECG Compared to ECG 03/02/2024 12:13:33 ST (T wave) deviation now present T-wave abnormality no longer present Electronically Signed On 05-15-24 12:02:50 CDT by Bobby Richardson
[2024-06-05] MEDS ORDERED: FENTANYL CITR 100 MCG/2 ML ONE (13:08)
[2024-06-05] MEDS ORDERED: MIDAZOLAM HCL 2 MG/2 ML INJ ONE (13:09)
[2024-06-05] MEDS ORDERED: HEPA 1000U/500MLS 2,000 UNIT/1,000 ML BAG IV ONE (13:22)
[2024-06-05] MEDS ORDERED: HEPARIN 10,000 UNIT/10 ML VIAL IV ONE (13:22)
[2024-06-05] MEDS ORDERED: CLOPIDOGREL 75 MG TABLET ONE (13:22)
[2024-06-05] MEDS ORDERED: HEPARIN 5000 UNIT/ML 1 ML VIAL ONE (13:22)
[2024-06-05] MEDS ORDERED: LIDOCAINE 1% 20 ML MDV ONE (13:22)
[2024-06-05] MEDS ORDERED: VERAPAMIL HCL 10 MG/4 ML VIAL IV ONE (13:22)
[2024-06-05] MEDS ORDERED: TICAGRELOR 90 MG TABLET PO ONE (13:23)
[2024-06-05] MEDS ORDERED: ATROPINE SULF 1 MG/10 ML SYR IV ONE (13:23)
[2024-06-05] MEDS ORDERED: ASPIRIN 325 MG TAB ONE (13:23)
[2024-06-05] MEDS ORDERED: NA CHLORIDE 0.9% 500 ML ONE (13:23)
[2024-06-05] MEDS ORDERED: HEPA 1000U/500MLS 1,000 UNIT/500 ML BAG IV ONE (14:11)
[2024-06-05] MEDS: NA CHLORIDE 0.9% 500 ML ONE (15:45)
[2024-06-05 17:20] VITALS: O2SAT 98
[2024-06-05 17:44] VITALS: TEMP 96.8
[2024-06-05 17:59] VITALS: BP 120/62
--- NOTE | 2024-06-06 02:21 | OP ---
Date of Procedure: 06/05/2024 Surgeon: SHELLY MORALES Procedures Performed: 1. Selective coronary angiogram. 2. Left heart catheterization. 3. Right heart catheterization indicating aortic valve stenosis evaluation. Access: 1. Right radial artery 6-[place], closed with TR band. 2. Right IJ 7-[place], closed with manual pressure. Complications: None. Bleeding: Less than 50 mL. Total Sedation Time: 1 hour. Description Of Procedure: After risks, benefits, and alternatives were explained, the patient agreed to procedure and signed informed consent. The patient was brought into cardiac catheterization [facility], prepped and draped in usual sterile fashion. Then, I accessed right radial artery using pedi atric micropuncture kit, ultrasound guidance, and placed 6-[place]izen [place] Slender sheath and I accessed right IJ using micropuncture kit and ultrasound guidance, and placed 7-[place] sheath and I took a balloon-tipped 7-[place] catheter through the IJ access into the right atrium, right ventricle, pulmonary artery and wedge, obtained waveform on pressure and calculated cardiac output by thermodilu tional method and then removed the [place]. IJ access was removed. Manual pressure was used for closur e with good hemostasis. Then, I took a 5-[place] 4 catheter into aortic root, engaged left main , took standard views, and then the RCA and took standard views and then crossed the aortic valve and exchanged for a [place] catheter and then did a simultaneous LV and aorta measurements and then pul lback did not record any gradient, then removed the catheter and the sheath, placed TR band with good hemostasis. Findings: Coronary angiogram: 1. Left main is normal. 2. LAD; proximal segment is normal. There is focal 20% in the mid segment. The rest of the LAD is n ormal, normal diagonal branches. 3. Left circumflex has mid 40%, rest of it is normal. 4. RCA is a dominant circulation, proximal 50% and mid 30% stenosis and then luminal irregularities. Right heart catheterization: RA pressure was 8, RV pressure was 39/1, mean of 11. PA pressure was 3 4/12, mean of 21. Pulmonary wedge pressure was 17 and LVEDP was around 25 mmHg. Cardiac output aver age was 5.5 L/minute, gradient across the aortic valve was 31 mmHg, and valve area was 1.0 cm2. Conclusions: 1. Mild to moderate nonobstructive coronary artery disease. 2. Moderate to severe aortic valve stenosis. Recommendation: Aortic valve replacement. SR/MODL Voice ID: [id number] Report ID: [id number]
== END 2024-06-05 18:10 | disposition home or self-care (01) ==
LOC: CCL 12:23
PROVIDERS: ATTEND Internal Medicine
DX: I35.0 Nonrheumatic aortic (valve) stenosis (principal); I25.10 Atherosclerotic heart disease of native coronary artery without angina pectoris; I34.0 Nonrheumatic mitral (valve) insufficiency; I10 Essential (primary) hypertension; E78.5 Hyperlipidemia, unspecified; I82.409 Acute embolism and thrombosis of unspecified deep veins of unspecified lower extremity; Z79.01 Long term (current) use of anticoagulants; Z79.899 Other long term (current) drug therapy
CPT/HCPCS: 93005; 85025; 80048; 36415; 85610; 85730; 93460; 76937; C1893; Q9966; J1644; J2003; J2250; J3010; J7040 ×2; J0461